=== PATIENT | female | born 1990 | race Asian ===

== ENCOUNTER 2016-06-28 07:24 | Emergency (ER) | payer SELFPAY ==
[2016-06-28 07:51] VITALS: BP 106/69
[2016-06-28] MEDS ORDERED: Ketorolac INJ* 30 MG/ML 1 ML VIAL IM ONE (08:04)
--- NOTE | 2016-06-28 08:15 | UC ---
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 - History of Current Complaint Chief Complaint: UCBackPain Stated Complaint: BACK PAIN Time Seen by Provider: 06/28/16 07:50 Hx Obtained From: Patient Hx Last Menstrual Period: 05/29/16 Onset/Duration: Sudden Onset, Lasting Hours Timing: Constant Severity Initially: Severe Severity Currently: Severe Pain Intensity: 8 Character: Aching, Throbbing, Stiffness Aggravating: Movement, Lifting Alleviating: Nothing Associated Signs And Symptoms: Negative: Swelling, Redness, Bruising, Fever, Weakness, Numbness, Tingling, Abdominal Pain, Flank Pain, Bladder Incontinence, Bowel Incontinence, Weight Loss, Pain with Weight Bearing Related History: Occupational Injury - ? 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 - Allergies/Home Medications Allergies/Adverse Reactions: Allergies Allergy/AdvReac Type Severity Reaction Status Date / Time No Known Allergies Allergy Verified 06/28/16 07:47 PMH/Surg Hx/FS Hx/Imm Hx Previously Healthy: Yes Endocrine History Of: Denies: Diabetes, Thyroid Disease Cardiovascular History Of: Denies: Cardiac Disorders, Hypertension Respiratory History Of: Denies: COPD, Asthma GI/ History Of: Denies: Ulcer - Surgical History Surgical History: None - Family History Known Family History: Positive: Hypertension - Social History Alcohol Use: None Substance Use Type: None Smoking Status (MU): Never Smoked Tobacco Review of Systems Constitutional: Negative Skin: Negative Eyes: Negative ENT: Negative Respiratory: Negative Cardiovascular: Negative Gastrointestinal: Negative Genitourinary: Negative Motor: Negative Neurovascular: Negative Musculoskeletal: Myalgia Neurological: Negative Psychological: Negative All Other Systems Reviewed And Are Negative: Yes Physical Exam Triage Information Reviewed: Yes Appearance: Well-Appearing, Well-Nourished, Pain Distress Vital Signs: Initial Vital Signs Temp 99.3 F 06/28/16 07:40 Pulse 83 06/28/16 07:40 Resp 18 06/28/16 07:40 BP 106/69 06/28/16 07:40 Pulse Ox 100 06/28/16 07:40 Eyes: Positive: Conjunctiva Clear ENT: Positive: Hearing grossly normal. Negative: Nasal congestion, Nasal drainage, Trismus, Muffled/hoarse voice Neck: Positive: No Lymphadenopathy. Negative: Supple, Nontender Respiratory: Positive: Lungs clear, Normal breath sounds, No respiratory distress, No accessory muscle use Cardiovascular: Positive: RRR, No Murmur Musculoskeletal: Positive: ROM Intact, No Edema Neurological: Positive: Alert, Muscle Tone Normal Psychological Exam: Normal Skin Exam: Normal Back Pain Course/Dx - Differential Dx/Diagnosis Provider Diagnoses: cervical strain (right trapezius and SCM). right rhomboid strain Discharge - Discharge Plan Condition: Stable Disposition: HOME Prescriptions: Cyclobenzaprine TAB* [Flexeril TAB*] 5 mg PO TID PRN #21 tab PRN Reason: Spasms Ibuprofen TAB* [Motrin TAB*] 600 mg PO QID PRN #40 tab PRN Reason: Pain Patient Education Materials: Cervical Strain (ED), Thoracic Back Strain (ED) Forms: *Work Release Referrals: [facility] [Outside] (call for help finding a local MD) Additional Instructions: soft cervical collar when upright heat recheck in 4-7 days if not completely better Images Head: 1 - markedly tender/decreased ROM Front/Back of Body, Lg ([place]): 1 - tender
== END 2016-06-28 08:36 | disposition home or self-care (01) ==
LOC: UCEAST 07:24
DX: S16.1XXA Strain of muscle, fascia and tendon at neck level, initial encounter (principal); S29.012A Strain of muscle and tendon of back wall of thorax, initial encounter; X58.XXXA Exposure to other specified factors, initial encounter; Y93.9 Activity, unspecified; Y99.9 Unspecified external cause status
CPT/HCPCS: 96372; 99203; G0463; J1885